=== PATIENT | female | born 1970 | race Caucasian/White ===

== ENCOUNTER 2016-11-30 14:46 | Emergency (ER) | payer OTHER ==
--- NOTE | 2016-11-30 15:25 | DIAGNOSTIC IMAGING REPORT ---
PROCEDURE: XR CHEST 1 VIEW INDICATION: CHEST PAIN, initial encounter TECHNIQUE: Portable AP view 03:07 p.m. COMPARISON: None. FINDINGS: Lungs are clear. Heart and mediastinum are normal. Thorax is normal. IMPRESSION: 1. Negative chest.
--- NOTE | 2016-11-30 17:36 | DIAGNOSTIC IMAGING REPORT ---
PROCEDURE: CTA THORAX WITH CONTRAST INDICATION: CHEST PAIN TECHNIQUE: 84 ml of Isovue 370 was injected intravenously and axial images were obtained of the chest with 3D sagittal and coronal MIP reconstructions. COMPARISON: None. FINDINGS: Normal opacification of the pulmonary arterial tree without filling defect. The central pulmonary arteries are normal caliber. Thoracic aorta is normal caliber. The great vessels demonstrate a normal variant branching pattern with aortic arch origin of the left vertebral artery. Heart size is normal. No pericardial effusion. Mild bilateral hilar adenopathy No mediastinal masses. The esophagus is normal in caliber without hiatal hernia. The thyroid gland is normal. The lungs are clear. The airway is patent and branches normally. No pleural effusions or pneumothorax. Osseous structures are intact. The images obtained of the upper abdomen are normal. IMPRESSION: 1. No pulmonary embolus. 2. Discussed with Dr. Felipe in the emergency room.
--- NOTE | 2016-11-30 18:07 | ED ORDER SUMMARY ---
..... Patient: REJI LU OrderSheet [facility] VisitID: [id number] [place] [address] 46y, F Registration Date/Time: 11/30/2016 ORDER SHEET Weight: 77.1 kg (stated) Allergies: morphine, Tramadol, Toradol GENERAL ORDERS: Chest 1V Urgent (15:00 11/30/2016 SStone R.N. per protocol) (15:07 MCook R.N.) Global Climate Change Researcher (Continuous) (15:11/30/2016 SStone R.N. per protocol) (15:01 SStone R.N.) Cardiac Panel Stat (15:11/30/2016 SStone R.N. per protocol) (15:10 MCook R.N.) Oxygen (2 L/min) (NC) (15:11/30/2016 SStone R.N. per protocol) (15:01 SStone R.N.) Pulse oximeter (15:11/30/2016 SStone R.N. per protocol) (15:01 SStone R.N.) EKG - ER Stat (15:11/30/2016 SStone R.N. per protocol) (15:01 SStone R.N.) D-Dimer Urgent (15:17 11/30/2016 Tuan LANGSTON) (Ack 15:26 LTapper) (15:26 MCook R.N.) Lipase Urgent (15:17 11/30/2016 Tuan LANGSTON) (Ack 15:26 LTapper) (15:26 MCook R.N.) CTA Thorax w Cont (No) (N/A) Urgent (16:17 11/30/2016 Tuan LANGSTON) (Ack 16:23 LTapper) (16:55 MCook R.N.) Troponin-I Urgent (18:08 11/30/2016 Tuan LANGSTON) (Ack 18:15 LTapper) (18:22 MCook R.N.) MEDICATION ORDERS: Ibuprofen PO 600 mg (NOW) (15:20 11/30/2016 Tuan LANGSTON) (15:26 MCook R.N.) GI Cocktail WHITE PO 50 mL (NOW) (17:37 11/30/2016 Tuan LANGSTON) (17:50 Cliff Renee) IV FLUIDS: IV Saline Lock (15:08 11/30/2016 Tuan LANGSTON) (15:10 Cliff Renee) ORDER SHEET NOTES: [Electronically signed by John Harris R.N. (19:09 11/30/2016)] [Electronically signed by Denver Felipe MD (20:54 12/01/2016)] [Electronically locked/signed by John Harris R.N. (19:09 11/30/2016)]
--- NOTE | 2016-11-30 18:07 | ED ORDER SUMMARY ---
..... Patient: REJI LU OrderSheet [facility] VisitID: [id number] [place] [address] 46y, F Registration Date/Time: 11/30/2016 ORDER SHEET Weight: 77.1 kg (stated) Allergies: morphine, Tramadol, Toradol GENERAL ORDERS: Chest 1V Urgent (15:00 11/30/2016 SStone R.N. per protocol) (15:07 MCook R.N.) Producer Assistant (Continuous) (15:11/30/2016 SStone R.N. per protocol) (15:01 SStone R.N.) Cardiac Panel Stat (15:11/30/2016 SStone R.N. per protocol) (15:10 MCook R.N.) Oxygen (2 L/min) (NC) (15:11/30/2016 SStone R.N. per protocol) (15:01 SStone R.N.) Pulse oximeter (15:11/30/2016 SStone R.N. per protocol) (15:01 SStone R.N.) EKG - ER Stat (15:11/30/2016 SStone R.N. per protocol) (15:01 SStone R.N.) D-Dimer Urgent (15:17 11/30/2016 Tuan LANGSTON) (Ack 15:26 LTapper) (15:26 MCook R.N.) Lipase Urgent (15:17 11/30/2016 Tuan LANGSTON) (Ack 15:26 LTapper) (15:26 MCook R.N.) CTA Thorax w Cont (No) (N/A) Urgent (16:17 11/30/2016 Tuan LANGSTON) (Ack 16:23 LTapper) (16:55 MCook R.N.) Troponin-I Urgent (18:08 11/30/2016 Tuan LANGSTON) (Ack 18:15 LTapper) (18:22 MCook R.N.) MEDICATION ORDERS: Ibuprofen PO 600 mg (NOW) (15:20 11/30/2016 Tuan LANGSTON) (15:26 MCook R.N.) GI Cocktail WHITE PO 50 mL (NOW) (17:37 11/30/2016 Tuan LANGSTON) (17:50 Cliff Renee) IV FLUIDS: IV Saline Lock (15:08 11/30/2016 Tuan LANGSTON) (15:10 Cliff Renee) ORDER SHEET NOTES: [Electronically signed by John Harris R.N. (19:09 11/30/2016)] [Electronically signed by Denver Felipe MD (20:54 12/01/2016)] [Electronically locked/signed by John Harris R.N. (19:09 11/30/2016)]
--- NOTE | 2016-11-30 18:07 | ED NURSING NOTES ---
Clinical Report - Nurses [facility] [address] [place] [address] 11/30/2016 14:48 Patient: REJI LU TRIAGE Triage time 14:50. Acuity: LEVEL 2. Chief Complaint: CHEST PAIN. --14:54 Alice Ramos R.N. 14:50 11/30/16. BP: 115/64. HR: 82. RR: 18. O2 saturation: 98%. Temp: 98.3 F. Pain level now: 03/26. --14:54 Alice Ramos R.N. Weight: 77.1 kg stated. Height/Length: 67 inches Per Patient. BMI: 26.6. --14:51 Alice Ramos R.N. Medications Humalog sliding scale. --14:57 Alice Ramos R.N. Lantus 22 units A.M, 24 P.M. --14:58 Alice Ramos R.N. Atorvastatin 40 mg qhs. --14:58 Alice Ramos R.N. Cyclobenzaprine 10 mg bid. --14:58 Alice Ramos R.N. Aprazolam 0.5 mg prn. --14:58 Alice Ramos R.N. Ibuprofen 800 mg BID. --14:58 Alice Ramos R.N. Gabapentin 500 mg bid. --14:58 Alice Ramos R.N. Klor-Con M10 Oral. --14:58 Alice Ramos R.N. Furosemide 20 mg daily. --14:58 Alice Ramos R.N. Vitamin D2 Oral. --14:59 Alice Ramos R.N. Nystatin bid. --14:59 Alice Ramos R.N. Allergies morphine. --14:51 Alice Ramos R.N. Tramadol. --14:51 Alice Ramos R.N. Toradol. --15:15 John Harris R.N. History Arrived by EMS, and from home (m48). Onset. (6 hours ago). She has had mild difficulty breathing. No sweating episodes, nausea or vomiting. Treatment FERRYBOAT DECKHAND: Took aspirin and NTG x1 sublingually. SURGERY HX: ( trigger thumb release). SOCIAL HX: Heavy tobacco smoker (cigarette)- less than 1 pack per day. History of heavy drug use: marijuana. Recently used drugs yesterday. No alcohol use. SELF HARM ASSESSMENT: A self harm assessment was performed. The patient answered "no" to the question "Do you have thoughts of harming or killing yourself?". --14:54 Alice Ramos R.N. PROBLEMS: Neuropathy. Diabetes. Copd. --14:51 Alice Ramos R.N. Interventions ID band on patient. --14:54 Alice Ramos R.N. PHYSICAL ASSESSMENT GENERAL / NEURO / PSYCH: Alert. Oriented X 4. Appears in no acute distress. RESPIRATORY: Respirations not labored. Breath sounds within normal limits. CVS: Heart sounds within normal limits. Pulses within normal limits. Capillary refill less than 2 seconds. GI / : Abdomen soft. EXTREMITIES: No lower extremity edema. SKIN: Skin is warm and dry. Skin is non-tender. --14:55 Alice Ramos R.N. NURSING PROGRESS NOTES 14:56 11/30/2016 Site #1 started prior to arrival by EMS via IV in the left hand with an 20g angiocath. --14:56 Alice Ramos R.N. Monitoring of patient in place. EKG time: (1450). EKG was performed by a tech and shown to the ED physician. Finger stick glucose: 328. Patient gowned. Reassurance given. Patient identifiers checked. Call light placed in reach. Side rails up x 2. --14:57 Alice Ramos R.N. 14:55 11/30/16. BP: 117/66. HR: 87. --14:57 Alice Ramos R.N. ( called lab to come draw.). --15:01 Alice Ramos R.N. Patient ID band checked for patient name and birthdate: patient confirmed. Blood samples drawn from the right antecubital space with Vacutainer by tech per protocol ; labeled in presence of the patient and sent to lab: rainbow set: cardiac enzymes (1st set). --15:09 John Harris R.N. 15:16 11/30/16. BP: 107/61. HR: 83. O2 saturation: 97% on room air. Pain level now: 03/26. --15:17 John Harris R.N. ( Pt sitting up on stretcher, MD in to see Pt, VSS. Pt reports that her pain remains the same.). --15:17 John Harris R.N. EKG time: (14:51). EKG was performed by a tech and shown to the ED physician. --15:22 Ambreen Vazquez 15:26 11/30/2016 Ibuprofen PO Tablets 600 mg given. Allergies verified and confirmed 5 rights. --15:26 John Harris R.N. ( Pt resting in bed, VSS, 2nd IVIP for CTA. Pt tolerated poorly, tearful.). --16:41 John Harris R.N. Patient transported to CT by stretcher with tech. (16:50 Nov 30 2016). --16:55 John Harris R.N. 16:41 11/30/2016 Site #2 started via IV in the left antecubital space; one attempt. Saline lock flushed with 10 mL saline (For CT with contrast purposes). --16:56 John Harris R.N. ( Pt's IV intolerant to CT contrast pressure. New IV placed in CT room. Pt tolerated fair, still tearful. CT in progress.). --17:13 John Harris R.N. 17:13 11/30/2016 Site #2 removed. Bandage applied (Pt stated the IV was hurting after CT attempted to use it for CT-A and the back pressure blew off the contrast tubing.). --17:14 John Harris R.N. 17:14 11/30/2016 Site #3 started via IV in the right antecubital space with an 18g angiocath, with aseptic technique and good blood return; one attempt. Saline lock flushed with 10 mL saline. --17:14 John Harris R.N. Patient returned from CT by stretcher with tech. (17:29 Nov 30 2016). --17:29 John Harris R.N. 17:28 11/30/16. BP: 116/73. HR: 77. RR: 18. O2 saturation: 98% on room air. Pain level now: 03/26. --17:29 John Harris R.N. 17:49 11/30/2016 GI COCKTAIL WHITE (Simethicone) PO Oral Suspension 50 mL given. Allergies verified and confirmed 5 rights. --17:50 John Harris R.N. ( Pt reports her pain is unchanged. Visitor at bedside, VSS. GI cocktail given.). --17:50 John Harris R.N. 17:50 11/30/16. BP: 111/69. HR: 89. RR: 16. O2 saturation: 96% on room air. Pain level now: 03/26. --17:51 John Harris R.N. Checked patient name and birthdate. Blood samples drawn from the right antecubital space by nurse. Initial blood discarded. Line flushed with 10 mL normal saline post blood draw. Reassessment after medication administered. She has had no adverse reaction. Overall patient status is the same- she states feels the same. --18:21 John Harris R.N. 17:58 11/30/2016 Ibuprofen PO Response: no adverse reaction symptoms are the same. The patient feels the same. --18:23 John Harris R.N. 18:18 11/30/2016 GI COCKTAIL WHITE PO Response: no adverse reaction symptoms are the same. The patient feels the same. --18:23 John Harris R.N. 19:06 11/30/2016 Site #1 removed upon discharge. Bandage applied. --19:07 John Harris R.N. 19:07 11/30/2016 Site #3 removed upon discharge. Bandage applied. --19:07 John Harris R.N. DISPOSITION / DISCHARGE 18:20 11/30/16. BP: 125/70. HR: 75. RR: 16. O2 saturation: 97% on room air. Temp: 97.8 F. Pain level now: 03/26. --18:21 John Harris R.N. Condition at departure: stable. The goals identified in the patient's plan of care were met. No learning barriers present. Discharge instructions provided and reviewed with the patient and family. Reviewed medication(s) side effects, precautions, dosing and course information. Prescription(s) given to the patient. Reviewed referral to a primary care physician. Patient verbalized understanding. Written instructions provided in Norwegian. The patient was discharged by the physician. She was discharged home and accompanied by family. She left the Emergency Department ambulatory and via private vehicle. Family member driving. --19:04 John Harris R.N. Departure time: 19:08 Nov 30 2016. --19:08 John Harris R.N. Locked/Released at 11/30/2016 19:09 by John Harris R.N.
--- NOTE | 2016-11-30 18:07 | ED CLINICAL REPORT ---
Clinical Report - Physicians/Mid Levels [facility] [address] [place] [address] 11/30/2016 14:48 Patient: REJI LU Time Seen: 15:03 Nov 30 2016. Arrived- By ambulance. Historian- patient and EMS personnel. CPT: ER phys charges level 4 plus (#022795). EKG interpretation (#[id number]). HISTORY OF PRESENT ILLNESS Chief Complaint: CHEST PAIN. It is described as sharp and "pain" and it is described as located in the central chest area. At its maximum, severity described as moderate. When seen in the E.D., severity described as moderate. Modifying factors- worsened by movement and deep breaths. Relieved by nitroglycerin (one, given by paramedics). Not relieved by anything. This started today about 0900 AM and is still present. It has been constant. Onset during light activity; woke up with it this morning. No nausea, vomiting or diaphoresis. She has had difficulty breathing. Similar symptoms previously: None. Recent medical care: Not recently seen/assessed. Prehospital Treatment: ASA 325 mg PO given. NITROGLYCERIN Pain relieved for about 10 minutes after NTG. spray X1 SL given by EMS. REVIEW OF SYSTEMS No fever, chills, cough, pedal edema or calf pain. No headache, sore throat, blurred vision, abdominal pain or black stools. No difficulty with urination, skin rash, enlarged lymph nodes or joint pain. All systems otherwise negative, except as recorded above. PAST HISTORY Diabetes mellitus. Hyperlipidemia. Neuropathy. Diabetes. Copd. : ( trigger thumb release). Gastroesophageal reflux. Surgeries: No prior cardiac procedures. Medications: Nystatin bid. Vitamin D2 Oral. Furosemide 20 mg daily. Klor-Con M10 Oral. Gabapentin 500 mg bid. Ibuprofen 800 mg BID. Aprazolam 0.5 mg prn. Cyclobenzaprine 10 mg bid. Atorvastatin 40 mg qhs. Lantus 22 units A.M, 24 P.M. Humalog sliding scale. Allergies: morphine. Toradol. Tramadol. SOCIAL HISTORY Heavy tobacco smoker (cigarette)- 1 pack per day. FAMILY HISTORY History of heart disease with premature onset in first-degree relative (mother). ADDITIONAL NOTES The nursing notes have been reviewed. PHYSICAL EXAM Vital Signs: 11/30/2016 14:50 BP: 115/64. HR: 82. RR: 18. O2 saturation: 98%. Temp: 98.3 F. Pain level now: 710. Appearance: Alert. Anxious. Patient in mild distress. Eyes: Eyes normal inspection. ENT: Ears normal. Nose normal. Pharynx normal. Neck: Normal inspection. Neck supple. CVS: Normal heart rate and rhythm. Heart sounds normal. Pulses normal. No cardiac murmur. Respiratory: No respiratory distress. Chest pain reproducible with palpation of the costal cartilage and anterior chest wall, with movement of the trunk and left arm and with deep breathing (point tender over the left 6th rib at the sternum.). Breath sounds normal. No rales or wheezes. Abdomen: Soft and nontender. Bowel sounds normal. Back: Normal external inspection. Skin: Skin warm. Normal skin color. No rash. Extremities: Extremities exhibit normal ROM. No lower extremity edema. Neuro: Oriented X 3. No motor deficit. No sensory deficit. LABS, X-RAYS, AND EKG EKG: Normal sinus rhythm. Normal P waves. Poor R wave progression. Normal axis. Non-specific ST segment / T wave abnormalities. The study has been interpreted contemporaneously. The study has been independently viewed by me. The EKG appears to be a good tracing. Chest X-ray: Normal Chest X-Ray. Chest CT: No acute disease. Laboratory Tests: CBC w Diff: (SONIDO: 11/30/2016 15:09) ( MsgRcvd 11/30/2016 15:18) Final results Test Result Flag Units (Reference) WHITE BLOOD COUNT 6.6 K/uL (4.5-11.5) RED BLOOD COUNT 4.37 M/uL (4.00-5.20) HEMOGLOBIN 11.4 L gm/dL (12.0-16.0) HEMATOCRIT 35.2 L % (36.0-46.0) MEAN CELL VOLUME 81 fL (80-100) MEAN CORPUSCULAR HGB 26 pg (26-34) MEAN CORPUSCULAR HGB CONC 32 g/dL (31-37) RED CELL DISTRIBUTION WIDTH 17.2 H % (11.6-14.8) PLATELET COUNT 442 H K/uL (150-400) NEUTROPHIL % 47.6 L % (50-75) LYMPH % 39.9 % (25-40) MONO % 10.1 % (3-14) EOSINOPHIL % 1.6 % (0-4) BASOPHIL % 0.8 % (0-2) [id number]: (SONIDO: 11/30/2016 15:00) ( [facility] [place] 15:32) Final results Test Result Flag Units (Reference) D-DIMER QUANTITATIVE 0.61 H ug/mLFEU (0.27-0.52) The primary value of this quantitative assay relates toits negative predictive value (i.e. exclusion) of pulmonaryembolism/deep vein thrombosis/DIC.Elevated levels of d-dimer may also occur with:, age, cancer, inflammation, liver disease,post-op, infection, hematoma, coronary disease, peripheralarteriopathy, bleeding disorders and thrombolytic treatment.Results should be correlated with other clinical andradiological data.Testing Methodology: Latex Immunoassay CHEM 13 PANEL: (SONIDO: 11/30/2016 15:09) ( [facility] [place] 11/30/2016 15:36) IP Test Result Flag Units (Reference) GLUCOSE 342 H mg/dL (70-110) BUN 10 mg/dL (7-18) CREATININE 0.7 mg/dL (0.6-1.3) Estimated GFR >60 mL/min Estimated GFR- >60 mL/min Note: Persistent reduction over 3 months in eGFR<60 mL/min/1.73 m2 defines CKD. Patients with eGFR values>=60 mL/min/1.73 m2 may also have CKD if evidence ofpersistent proteinuria. Additional information may be foundat www.kidney.org. SODIUM 137 mmol/L (136-145) POTASSIUM 4.0 mmol/L (3.5-5.1) CHLORIDE 103 mmol/L (98-107) CARBON DIOXIDE 25 mmol/L (21-32) CALCIUM 8.3 L mg/dL (8.5-10.1) TOTAL PROTEIN 6.5 g/dL (6.4-8.2) ALBUMIN 3.1 L g/dL (3.3-5.0) BILIRUBIN, TOTAL 0.2 mg/dL (0.0-1.0) ALKALINE PHOSPHATASE 64 U/L (46-116) AST (SGOT) 15 U/L (15-37) ALT (SGPT) 20 U/L (12-78) MAGNESIUM 1.7 L mg/dL (1.8-2.4) CPK 108 U/L (24-260) TROPONIN I <0.05 ng/mL (0.00-1.5) TROPONIN REFERENCE RANGE:<0.1 NEGATIVE0.1-1.5 INDETERMINANT>1.5 POSITIVE . PROGRESS AND PROCEDURES Course of Care: heplock ASA 325 mg in the field patient received nitroglycerin 1 in the field. This eliminated the pain for 10 minutes and then it came back. the patient is point tender over the left chest wall. Toradol was offered but the patient is allergic to this and she develops rash. Patient has taken ibuprofen and Aleve in the past without problems. Ibuprofen 600 mg by mouth. Patient/family counseled. Disposition: Discharged. Condition: stable. CLINICAL IMPRESSION Costochondritis .12 lead EKG performed. INSTRUCTIONS Your Current Medications: CONTINUE TAKING THE FOLLOWING MEDICATIONS: Aprazolam 0.5 mg prn*. Atorvastatin 40 mg qhs*. Cyclobenzaprine 10 mg bid*. Furosemide 20 mg daily*. Gabapentin 500 mg bid*. Humalog sliding scale*. Ibuprofen 800 mg BID*. Klor-Con M10 Oral. Lantus 22 units A.M, 24 P.M*. Nystatin bid*. Vitamin D2 Oral. Prescription Medications: Hydrocodone/APAP 5mg/325mg: take 1 to 2 orally every 6 hours as needed for pain. Dispense fifteen (15). No refills. Understanding of the discharge instructions verbalized by patient. (Electronically signed by Denver Felipe MD 12/01/2016 20:54)
--- NOTE | 2016-12-01 20:54 | ED MED RECONCILIATION SUMMARY ---
Patient: REJI LU Medication Reconciliation Report [facility] VisitID: [id number] [address] [place] [address] 46y, F Registration Date/Time: 11/30/2016 Weight: 77.1 kg Height/Length: 67 in. BMI: 26.6 ALLERGIES: morphine, Toradol, Tramadol The patient's Home Medications are listed below: CONTINUE TAKING THE FOLLOWING MEDICATIONS: Aprazolam 0.5 mg prn Atorvastatin 40 mg qhs Cyclobenzaprine 10 mg bid Furosemide 20 mg daily Gabapentin 500 mg bid Humalog sliding scale Ibuprofen 800 mg BID Klor-Con M10 Oral Lantus 22 units A.M, 24 P.M Nystatin bid Vitamin D2 Oral The source(s) of the original Home Medication information: Not obtained. The following Medications were given to the patient in the Emergency Department: Ibuprofen [PO] PO 600 mg, administered: 11/30/2016 3:26:00 PM GI COCKTAIL WHITE [PO] PO 50 mL, administered: 11/30/2016 5:49:00 PM The following Medications were prescribed to the patient: Hydrocodone/APAP 5mg/325mg: take 1 to 2 orally every 6 hours as needed for pain. Dispense fifteen (15). No refills. -- Denver Felipe MD
--- NOTE | 2016-12-01 20:54 | ED MED RECONCILIATION SUMMARY ---
Patient: REJI LU Medication Reconciliation Report [facility] VisitID: [id number] [address] [place] [address] 46y, F Registration Date/Time: 11/30/2016 Weight: 77.1 kg Height/Length: 67 in. BMI: 26.6 ALLERGIES: morphine, Toradol, Tramadol The patient's Home Medications are listed below: CONTINUE TAKING THE FOLLOWING MEDICATIONS: Aprazolam 0.5 mg prn Atorvastatin 40 mg qhs Cyclobenzaprine 10 mg bid Furosemide 20 mg daily Gabapentin 500 mg bid Humalog sliding scale Ibuprofen 800 mg BID Klor-Con M10 Oral Lantus 22 units A.M, 24 P.M Nystatin bid Vitamin D2 Oral The source(s) of the original Home Medication information: Not obtained. The following Medications were given to the patient in the Emergency Department: Ibuprofen [PO] PO 600 mg, administered: 11/30/2016 3:26:00 PM GI COCKTAIL WHITE [PO] PO 50 mL, administered: 11/30/2016 5:49:00 PM The following Medications were prescribed to the patient: Hydrocodone/APAP 5mg/325mg: take 1 to 2 orally every 6 hours as needed for pain. Dispense fifteen (15). No refills. -- Denver Felipe MD
--- NOTE | 2016-12-01 20:54 | ED DISCHARGE INSTRUCTIONS ---
Patient: REJI LU General Instructions [facility] VisitID: [id number] [address] [place] [address] 46y, F Registration Date/Time: 11/30/2016 Costochondritis .12 lead EKG performed. INSTRUCTIONS Your Current Medications: CONTINUE TAKING THE FOLLOWING MEDICATIONS: Aprazolam 0.5 mg prn*. Atorvastatin 40 mg qhs*. Cyclobenzaprine 10 mg bid*. Furosemide 20 mg daily*. Gabapentin 500 mg bid*. Humalog sliding scale*. Ibuprofen 800 mg BID*. Klor-Con M10 Oral. Lantus 22 units A.M, 24 P.M*. Nystatin bid*. Vitamin D2 Oral. Prescription Medications: Hydrocodone/APAP 5mg/325mg: take 1 to 2 orally every 6 hours as needed for pain. Dispense fifteen (15). No refills. Understanding of the discharge instructions verbalized by patient. ADDITIONAL INFORMATION Chest Wall Pain: Costochondritis The chest pain that you have had today is caused by Costochondritis. This condition is due to an inflammation of the cartilage joining the ribs to the breastbone. It is not caused by heart or lung problems. Although the exact cause for costochondritis is not known, it often occurs during times of emotional stress. It can be painful, but it is not dangerous. It usually disappears within one to two weeks, but may recur. Rarely, a more serious condition may cause symptoms similar to costochondritis; therefore, watch for the warning signs listed below. Home Care: If you feel that emotional stress is a cause of your condition, try to identify sources of that stress. It may not be obvious! Learn ways to deal with the stress in your life such as regular exercise, muscle relaxation, meditation, or simply taking time out for yourself. For more information about this, consult your doctor or go to a local bookstore and review books and tapes available on the subject of stress reduction. You may use acetaminophen (Tylenol) or ibuprofen (Motrin, Advil) to control pain, unless another pain medicine was prescribed. [ NOTE: If you have liver disease or ever had a stomach ulcer, talk with your doctor before using these medicines.] The use of heat (hot wet compress or heating pad) with or without local analgesic creams (Deep Heat Rub, Oumar Bowling) will be helpful to reduce pain. Follow Up with your doctor as directed or sooner if you do not start to improve within the next two days. Get Prompt Medical Attention if any of the following occur: A change in the type of pain: if it feels different, becomes more severe, lasts longer, or spreads into your shoulder, arm, neck, jaw or back Shortness of breath or increased pain with breathing Weakness, dizziness, or fainting Cough with dark colored sputum (phlegm) or blood Abdominal pain Dark red or black stools Fever of 100.4F (38C) or higher, or as directed by your healthcare provider You have been given the following additional information: Chest Wall Pain, Costochondritis (Electronically signed by Denver Felipe MD 12/01/2016 20:54)
--- NOTE | 2016-12-01 20:54 | ED MAR SUMMARY ---
..... Medication Administration Record [facility] [address] [place] [address] Patient: REJI LU Visit ID: [id number] 46y, F Weight: 77.1 kg Height/Length: 67 in BMI: 26.6 ALLERGIES: Tramadol, morphine, Toradol Given 15:26 11/30/2016 John Harris R.N. Medication Administered: IBUPROFEN [PO], Dose: 600 mg Tablets PO. Medication Ordered: Ibuprofen PO 600 mg (NOW). Given 17:49 11/30/2016 John Harris RKbN. Medication Administered: GI COCKTAIL WHITE [PO] (SIMETHICONE), Dose: 50 mL Oral Suspension PO. Medication Ordered: GI Cocktail WHITE PO 50 mL (NOW).
--- NOTE | 2016-12-01 20:54 | ED MAR SUMMARY ---
..... Medication Administration Record [facility] [address] [place] [address] Patient: REJI LU Visit ID: [id number] 46y, F Weight: 77.1 kg Height/Length: 67 in BMI: 26.6 ALLERGIES: Tramadol, morphine, Toradol Given 15:26 11/30/2016 John Harris R.N. Medication Administered: IBUPROFEN [PO], Dose: 600 mg Tablets PO. Medication Ordered: Ibuprofen PO 600 mg (NOW). Given 17:49 11/30/2016 John Harris RKbN. Medication Administered: GI COCKTAIL WHITE [PO] (SIMETHICONE), Dose: 50 mL Oral Suspension PO. Medication Ordered: GI Cocktail WHITE PO 50 mL (NOW).
== END 2016-11-30 19:09 | disposition home or self-care (01) ==
LOC: ED SRH 14:46
DX: M94.0 Chondrocostal junction syndrome [Tietze] (principal); F17.210 Nicotine dependence, cigarettes, uncomplicated; E11.9 Type 2 diabetes mellitus without complications; Z79.4 Long term (current) use of insulin; Z79.899 Other long term (current) drug therapy; Z88.8 Allergy status to other drugs, medicaments and biological substances; Z88.5 Allergy status to narcotic agent
CPT/HCPCS: 90100; 90616; 91556; 92235; 92610; 92720; 95059

== ENCOUNTER 2017-02-11 21:50 | Emergency (ER) | payer OTHER ==
--- NOTE | 2017-02-11 23:13 | ED ORDER SUMMARY ---
..... Patient: REJI LU OrderSheet [facility] VisitID: [id number] [place] [address] 47y, F Registration Date/Time: 02/11/2017 ORDER SHEET Weight: 74.8 kg (stated) Allergies: morphine, Toradol, Tramadol GENERAL ORDERS: Ribs Unilat w PA Chest Left Urgent (22:15 02/11/2017 Kirit Parkinson) (Ack 22:17 [facility] ER Admission Specialist) (22:48 MWinterer R.N.) MEDICATION ORDERS: Dilaudid IM 2 mg (HIGH ALERT MEDICATION, NOW) (22:14 02/11/2017 Kirit Parkinson) (Ack 22:15 MWinterer R.N.) (22:19 MWinterer R.N.) IV FLUIDS: ORDER SHEET NOTES: [Electronically signed by Ralph Sheppard R.N. (23:50 02/11/2017)] [Electronically signed by Renato Delgado Dr. (08:25 02/13/2017)] [Electronically locked/signed by Ralph Sheppard R.N. (23:50 02/11/2017)]
--- NOTE | 2017-02-11 23:13 | ED NURSING NOTES ---
Clinical Report - Nurses [facility] [address] [place] [address] 02/11/2017 21:51 Patient: REJI LU TRIAGE Acuity: LEVEL 3. Chief Complaint: BACK PAIN. Alert. No acute distress. --22:03 Danya Duenas R.N. 21:57 02/11/17. BP: 147/95. HR: 98. RR: 22. O2 saturation: 97%. Temp: 98.1 F (oral). Pain level now: 06/26. --22:03 Danya Duenas R.N. Weight: 74.8 kg stated. Height/Length: 67 inches Per Patient. BMI: 25.9. --22:00 Danya Duenas R.N. Medications Aprazolam 0.5 mg prn. Atorvastatin 40 mg qhs. Cyclobenzaprine 10 mg bid. Gabapentin 500 mg bid. Humalog sliding scale. Ibuprofen 800 mg BID. Klor-Con M10 Oral. --22:02 Danya Duenas R.N. Lantus 22 units A.M, 24 P.M. --22:02 Danya Duenas R.N. Lantus Subcutaneous. --22:02 Danya Duenas R.N. Furosemide Oral. --22:02 Danya Duenas R.N. Glidess FE. --22:02 Danya Duenas R.N. Medication/allergy information source: the patient. --22:03 Danya Duenas R.N. Allergies morphine. Toradol. Tramadol. --22:02 Danya Duenas R.N. History Arrived by private vehicle. Historian: patient. Accompanied by son and brother. Primary physician (Rolly). This started just prior to arrival. ( Pt reports she has had a cough for two weeks and tonight coughed and felt a "pop" in the left lower side of her back.). 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 PAST MEDICAL HX: The patient is post-menopausal. FALL RISK ASSESSMENT: Fall risk assessment completed. No fall risk identified. NUTRITIONAL RISK ASSESSMENT: The nutritional risk assessment revealed no deficiencies. FUNCTIONAL ASSESSMENT: Functional assessment: no impairments noted. LEARNING NEEDS ASSESSMENT: The learning needs assessment revealed no barriers. SKIN INTEGRITY ASSESSMENT: Skin integrity risk assessment completed. No skin integrity risk identified. --22: Danya Duenas R.N. PROBLEMS: Costochondritis. Diabetes Mellitus. Hyperlipidemia. Gastroesophageal Reflux. Neuropathy. Diabetes. Copd. --22:03 Danya Duenas R.N. ADDITIONAL SURGERIES: . Dilatation & Curettage. Knee Surgery. --22:03 Danya Duenas R.N. Assessment GENERAL / NEURO / PSYCH: Alert. Oriented X 4. Appears in no acute distress. Appears in pain. Patient appears calm and cooperative. RESPIRATORY: Respirations not labored. CVS: Capillary refill less than 2 seconds. GI / : Abdomen soft and nontender. SKIN: Mucous membranes are pink. Skin is warm and dry. --22: Danya Duenas R.N. Interventions ID band on patient. To treatment room. --22: Danya Duenas R.N. PHYSICAL ASSESSMENT 22:02/11/17. To room via wheelchair. GENERAL / NEURO / PSYCH: Alert. Oriented X 4. Appears in no acute distress. Appears in pain. HEENT: Pupils equal, round and reactive to light. No facial asymmetry noted. RESPIRATORY: Respirations not labored. CVS: Capillary refill less than 2 seconds. Pulses within normal limits. GI / : Abdomen soft and nontender. SKIN: Skin is warm and dry. Normal skin turgor. --22: Danya Duenas R.N. NURSING PROGRESS NOTES 22:02/11/17. Patient gowned. Reassurance given. Two patient identifiers checked. Checked patient name and birthdate. Call light placed in reach. Side rails up x 1. Bed placed in lowest position. Brakes of bed on. Patient ready for evaluation- chart flagged and ED physician and PA notified. --22: Danya Duenas R.N. 22:19 02/11/2017 Dilaudid (HYDROmorphone HCl PF) IM 2 mg given. Given in the right deltoid. Allergies verified, confirmed 5 rights and sedative warning given to the patient. --22:19 Danya Duenas R.N. 23:45. The patient is calm and resting quietly. RESPIRATORY: No respiratory distress. SKIN: Skin is warm and dry. Skin color within normal limits. --23:50 Ralph Sheppard R.N. DISPOSITION / DISCHARGE Departure time: 23:48. Condition at departure: stable. No learning barriers present. Discharge instructions provided and reviewed with the patient. Reviewed medication(s) side effects, precautions, dosing and course information. Prescription(s) given to the patient. Patient verbalized understanding. Written instructions provided in Chinese. The patient was discharged home and accompanied by family. She left the Emergency Department ambulatory and via private vehicle. Family member driving. FALL RISK ASSESSMENT: Fall risk assessment completed. No fall risk identified. --23:49 Ralph Sheppard R.N. 23:40 02/11/17. BP: 111/65. HR: 78. RR: 17. O2 saturation: 96%. Pain level now: 02/24. --23:49 Ralph Sheppard R.N. Locked/Released at 02/11/2017 23:50 by Ralph Sheppard R.N.
--- NOTE | 2017-02-11 23:13 | ED ORDER SUMMARY ---
..... 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 (23:50 02/11/2017)] [Electronically signed by Renato Delgado Dr. (08:25 02/13/2017)] [Electronically locked/signed by Ralph Sheppard R.N. (23:50 02/11/2017)]
--- NOTE | 2017-02-11 23:13 | ED CLINICAL REPORT ---
Clinical Report - Physicians/Mid Levels [facility] [address] [place] [address] 02/11/2017 21:51 Patient: REJI LU Time Seen: 2210. Arrived- By private vehicle. Historian- patient. HISTORY OF PRESENT ILLNESS Chief Complaint: Injury to BACK. Location of injuries- (left back ribs). The injury occurred today. (coughed and felt a pop in the back). Occurred at home. The patient complains of severe pain. No blow to the head, neck pain, loss of consciousness or seizure. Not dazed. REVIEW OF SYSTEMS No difficulty breathing or laceration. All systems otherwise negative, except as recorded above. PAST HISTORY See nurses notes. Tetanus immunization status is up-to-date. Medications: Glidess FE. Furosemide Oral. Lantus Subcutaneous. Lantus 22 units A.M, 24 P.M. Aprazolam 0.5 mg prn. Atorvastatin 40 mg qhs. Cyclobenzaprine 10 mg bid. Gabapentin 500 mg bid. Humalog sliding scale. Ibuprofen 800 mg BID. Klor-Con M10 Oral. Allergies: morphine. Toradol. Tramadol. ADDITIONAL NOTES The nursing notes have been reviewed. PHYSICAL EXAM Vital Signs: 02/11/2017 21:57 BP: 147/95. HR: 98. RR: 22. O2 saturation: 97%. Temp: 98.1 F. Pain level now: 10/10. Oxygen saturation normal. Appearance: Alert. Oriented X3. Patient in mild distress. Head: Head non-tender. No swelling of head. Eyes: Pupils equal, round and reactive to light. Pupillary exam: Right pupil 3mm, round and reactive to light directly and consensually and with accommodation. Left pupil: 3mm, round and reactive to light directly and consensually and with accommodation. EOM intact. ENT: No dental injury. No hemotympanum. Pharynx normal. Neck: No decreased ROM or muscle spasm in the neck. No pain with movement of head/neck. Painless ROM. Non-tender. No vertebral tenderness. CVS: Heart sounds normal. Pulses normal. Respiratory: Breath sounds normal. No rales, wheezes, rhonchi or crepitus. (left posterior chest wall tenderness). Abdomen: No visible injury. Soft and nontender. Bowel sounds normal. No mass. Back: No tenderness. Muscle spasm (left posterior midback). ROM normal. No tenderness or vertebral point tenderness. Skin: Skin intact. Skin warm and dry. Normal skin color. Normal skin turgor. Extremities: Normal inspection. Pelvis stable. Extremities atraumatic. No lower extremity edema. LABS, X-RAYS, AND EKG Sternum / Ribs X-rays: (PROCEDURE: XR RIBS UNILAT W/PA CHEST-LT INDICATION: COUGHING AND FELT/HEARD A POP TECHNIQUE: Three views of the left ribs with single PA view chest. COMPARISON: Chest x-ray 11/30/2016 FINDINGS: LEFT RIBS: Minimally displaced left lateral tenth rib fracture. No suspicious rib lesions. CHEST: Normal cardiomediastinal contour. Clear lungs without pleural effusion, pneumothorax, or contusion. The other visible osseous structures are intact. IMPRESSION: 1. Minimally displaced acute left lateral tenth rib fracture. 2. Normal chest without radiographic evidence of trauma.). Views: left ribs. The X-rays were independently viewed by me and interpreted by the radiologist. The X-rays were discussed with the radiologist (via pacs). PROGRESS AND PROCEDURES Course of Care: the patient is a pleasant 47-year-old female presenting for evaluation of left-sidedposterior rib pain. On examination, patient does have tenderness there. No signs of pneumothorax on examination. Patient is resting in bed however is in a mild amount of distress. Pain medication has been ordered. As well as radiographs of the chest and left ribs. Patient is agreeable to the treatment plan. Workup was significant for a acute fracture of theleft 10th rib. No pneumothorax noted. Pain has improved while here in the emergency department. Head discussion with the patient in regards to management of rib fractures. The patient increased risk of pneumonia and ways to reduce these risks. Furthermore discussed with the patient her workup here in the emergency department including diagnosis, home care, follow-up, and return precautions. All questions have been answered. The patient expressed understanding of these instructions and was agreeable to them. Disposition: Discharged. Condition: good. CLINICAL IMPRESSION 02/11/2017 21:57 BP: 147/95. HR: 98. RR: 22. O2 saturation: 97%. Temp: 98.1 F. Pain level now: 06/26. Hypertensive. Oxygen saturation normal. Single left rib fracture (10th). Essential hypertension. INSTRUCTIONS Warnings: GENERAL WARNINGS: Return or contact your physician immediately if your condition worsens or changes unexpectedly, if not improving as expected, or if other problems arise. SPECIFICALLY, return if you develop weakness, numbness, tingling, pain or incontinence. worsening pain, fever, or difficulty breathing. Your Current Medications: CONTINUE TAKING THE FOLLOWING MEDICATIONS: Aprazolam 0.5 mg prn*. Atorvastatin 40 mg qhs*. Cyclobenzaprine 10 mg bid*. Furosemide Oral. Gabapentin 500 mg bid*. Glidess FE*. Humalog sliding scale*. Ibuprofen 800 mg BID*. Klor-Con M10 Oral. Lantus 22 units A.M, 24 P.M*. Lantus Subcutaneous. Prescription Medications: Percocet 5 mg/325 mg: take 1-2 tablets orally every 6 hours as needed for pain. Dispense twenty (20). No refill. Substitution is permissible. Phenergan w/ Codeine 10mg / 6.25mg per 5 mL: take 1-2 teaspoons every 6 hours as needed for pain or cough. Dispense sixty (60) mL. No refill. Substitution is permissible. Follow-up: Return to the emergency department as needed. Follow up with your doctor in three days. Reason for referral: recheck today's concerns. Summary of care provided to patient and family via paper. Screening today revealed the patient's blood pressure to be in the normal range. The patient should follow up with a primary care provider for blood pressure management. Understanding of the discharge instructions verbalized by family. (Electronically signed by Renato Delgado Dr. 02/13/2017 8:25)
--- NOTE | 2017-02-11 23:13 | ED NURSING NOTES ---
Clinical Report - Nurses [facility] [address] [place] [address] 02/11/2017 21:51 Patient: REJI LU TRIAGE Acuity: LEVEL 3. Chief Complaint: BACK PAIN. Alert. No acute distress. --22:03 Danya Duenas R.N. 21:57 02/11/17. BP: 147/95. HR: 98. RR: 22. O2 saturation: 97%. Temp: 98.1 F (oral). Pain level now: 06/26. --22:03 Danya Duenas R.N. Weight: 74.8 kg stated. Height/Length: 67 inches Per Patient. BMI: 25.9. --22:00 Danya Duenas R.N. Medications Aprazolam 0.5 mg prn. Atorvastatin 40 mg qhs. Cyclobenzaprine 10 mg bid. Gabapentin 500 mg bid. Humalog sliding scale. Ibuprofen 800 mg BID. Klor-Con M10 Oral. --22:02 Danya Duenas R.N. Lantus 22 units A.M, 24 P.M. --22:02 Danya Duenas R.N. Lantus Subcutaneous. --22:02 Danya Duenas R.N. Furosemide Oral. --22:02 Danya Duenas R.N. Glidess FE. --22:02 Danya Duenas R.N. Medication/allergy information source: the patient. --22:03 Danya Duenas R.N. Allergies morphine. Toradol. Tramadol. --22:02 Danya Duenas R.N. History Arrived by private vehicle. Historian: patient. Accompanied by son and brother. Primary physician (Rolly). This started just prior to arrival. ( Pt reports she has had a cough for two weeks and tonight coughed and felt a "pop" in the left lower side of her back.). 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 PAST MEDICAL HX: The patient is post-menopausal. FALL RISK ASSESSMENT: Fall risk assessment completed. No fall risk identified. NUTRITIONAL RISK ASSESSMENT: The nutritional risk assessment revealed no deficiencies. FUNCTIONAL ASSESSMENT: Functional assessment: no impairments noted. LEARNING NEEDS ASSESSMENT: The learning needs assessment revealed no barriers. SKIN INTEGRITY ASSESSMENT: Skin integrity risk assessment completed. No skin integrity risk identified. --22: Danya Duenas R.N. PROBLEMS: Costochondritis. Diabetes Mellitus. Hyperlipidemia. Gastroesophageal Reflux. Neuropathy. Diabetes. Copd. --22:03 Danya Duenas R.N. ADDITIONAL SURGERIES: . Dilatation & Curettage. Knee Surgery. --22:03 Danya Duenas R.N. Assessment GENERAL / NEURO / PSYCH: Alert. Oriented X 4. Appears in no acute distress. Appears in pain. Patient appears calm and cooperative. RESPIRATORY: Respirations not labored. CVS: Capillary refill less than 2 seconds. GI / : Abdomen soft and nontender. SKIN: Mucous membranes are pink. Skin is warm and dry. --22: Danya Duenas R.N. Interventions ID band on patient. To treatment room. --22: Danya Duenas R.N. PHYSICAL ASSESSMENT 22:02/11/17. To room via wheelchair. GENERAL / NEURO / PSYCH: Alert. Oriented X 4. Appears in no acute distress. Appears in pain. HEENT: Pupils equal, round and reactive to light. No facial asymmetry noted. RESPIRATORY: Respirations not labored. CVS: Capillary refill less than 2 seconds. Pulses within normal limits. GI / : Abdomen soft and nontender. SKIN: Skin is warm and dry. Normal skin turgor. --22: Danya Duenas R.N. NURSING PROGRESS NOTES 22:02/11/17. Patient gowned. Reassurance given. Two patient identifiers checked. Checked patient name and birthdate. Call light placed in reach. Side rails up x 1. Bed placed in lowest position. Brakes of bed on. Patient ready for evaluation- chart flagged and ED physician and PA notified. --22: Danya Duenas R.N. 22:19 02/11/2017 Dilaudid (HYDROmorphone HCl PF) IM 2 mg given. Given in the right deltoid. Allergies verified, confirmed 5 rights and sedative warning given to the patient. --22:19 Danya Duenas R.N. 23:45. The patient is calm and resting quietly. RESPIRATORY: No respiratory distress. SKIN: Skin is warm and dry. Skin color within normal limits. --23:50 Ralph Sheppard R.N. DISPOSITION / DISCHARGE Departure time: 23:48. Condition at departure: stable. No learning barriers present. Discharge instructions provided and reviewed with the patient. Reviewed medication(s) side effects, precautions, dosing and course information. Prescription(s) given to the patient. Patient verbalized understanding. Written instructions provided in German. The patient was discharged home and accompanied by family. She left the Emergency Department ambulatory and via private vehicle. Family member driving. FALL RISK ASSESSMENT: Fall risk assessment completed. No fall risk identified. --23:49 Ralph Sheppard R.N. 23:40 02/11/17. BP: 111/65. HR: 78. RR: 17. O2 saturation: 96%. Pain level now: 02/24. --23:49 Ralph Sheppard R.N. Locked/Released at 02/11/2017 23:50 by Ralph Sheppard R.N.
--- NOTE | 2017-02-13 08:25 | ED DISCHARGE INSTRUCTIONS ---
Patient: REJI LU General Instructions [facility] VisitID: [id number] [address] [place] [address] 47y, F Registration Date/Time: 02/11/2017 02/11/2017 21:57 BP: 147/95. HR: 98. RR: 22. O2 saturation: 97%. Temp: 98.1 F. Pain level now: 06/26. Hypertensive. Oxygen saturation normal. Single left rib fracture (10th). Essential hypertension. INSTRUCTIONS Warnings: GENERAL WARNINGS: Return or contact your physician immediately if your condition worsens or changes unexpectedly, if not improving as expected, or if other problems arise. SPECIFICALLY, return if you develop weakness, numbness, tingling, pain or incontinence. worsening pain, fever, or difficulty breathing. Your Current Medications: CONTINUE TAKING THE FOLLOWING MEDICATIONS: Aprazolam 0.5 mg prn*. Atorvastatin 40 mg qhs*. Cyclobenzaprine 10 mg bid*. Furosemide Oral. Gabapentin 500 mg bid*. Glidess FE*. Humalog sliding scale*. Ibuprofen 800 mg BID*. Klor-Con M10 Oral. Lantus 22 units A.M, 24 P.M*. Lantus Subcutaneous. Prescription Medications: Percocet 5 mg/325 mg: take 1-2 tablets orally every 6 hours as needed for pain. Dispense twenty (20). No refill. Substitution is permissible. Phenergan w/ Codeine 10mg / 6.25mg per 5 mL: take 1-2 teaspoons every 6 hours as needed for pain or cough. Dispense sixty (60) mL. No refill. Substitution is permissible. Follow-up: Return to the emergency department as needed. Follow up with your doctor in three days. Reason for referral: recheck today's concerns. Summary of care provided to patient and family via paper. Screening today revealed the patient's blood pressure to be in the normal range. The patient should follow up with a primary care provider for blood pressure management. Understanding of the discharge instructions verbalized by family. ADDITIONAL INFORMATION Rib Fracture You have a fracture (break) of one or more ribs. Rib fractures do not require a cast like other bones. They will heal by themselves in about 4-6 weeks. The first 3-4 weeks will be the most painful because deep breathing, coughing or changing position from sitting to lying down, may cause the broken ends to move slightly. Home Care: Rest. You should not be doing any heavy lifting or strenuous exertion until the pain goes away. Because it hurts to breathe when you have a broken rib, there is risk of getting pneumonia from poor airflow through your lungs. To prevent this: Take four very deep breaths at least four times a day (exhale through pursed lips as if you are blowing up a balloon). If an "incentive spirometer" (breathing exercise device) was given to you, use it at least four times a day, or as directed. Apply an ice pack (ice cubes in a plastic bag, wrapped in a towel) over the injured area for 20 minutes every 1-2 hours the first day. Continue with ice packs 3-4 times a day for the next two days, then as needed for the relief of pain and swelling. You may use acetaminophen (Tylenol) or ibuprofen (Motrin, Advil) to control pain, unless another pain medicine was prescribed. [NOTE: If you have chronic liver or kidney disease or ever had a stomach ulcer or GI bleeding, talk with your doctor before using these medicines.] If your pain is not controlled by the treatment given, contact your doctor. Sometimes a stronger pain medicine may be needed. A nerve block (numbing the nerve between the ribs) can be performed in case of severe pain. Follow Up with your doctor during the next week, or as advised. Rarely, a broken rib will cause complications within the first few days that may not be evident during your initial exam (such as, collapsed lung, bleeding around the lung or into the abdomen, or pneumonia). Therefore, watch for the signs below. [NOTE: If x-rays were taken, they will be reviewed by a radiologist. You will be notified of any new findings that may affect your care.] Get Prompt Medical Attention if any of the following occur: Shortness of breath Increasing chest pain with breathing Dizziness, weakness or fainting New or worsening abdominal pain Fever of 100.4F (38C) or higher, or as directed by your healthcare provider Congested cough High Blood Pressure --Established High Blood Pressure (Hypertension) is a chronic disease. The cause is unknown in most cases. It can usually be controlled with lifestyle changes and/or medicines. Symptoms of high blood pressure may include headache, dizziness, visual changes, chest pain and shortness of breath. Sometimes it causes no symptoms at all. However, even if there are no symptoms, untreated high blood pressure increases the risk of heart attack, also known as acute myocardial infarction, or AMI, and stroke. It is a serious health risk and should not be ignored. A normal blood pressure is 120/80 or less. The first (top) number is the "systolic" pressure. The second (bottom) number is the "diastolic" pressure. Hypertension exists when either the top number is 140 or higher, OR the bottom number is 90 or higher on repeated measurements. Home Care: All patients with high blood pressure should do the following to lower their pressure. If you are on medicines, then these methods may reduce or eliminate your need for medicines in the future. Begin a weight loss program if you are overweight. Reduce your salt intake. Avoid high salt foods (olives, pickles, smoked meats, salted potato chips, etc.). Do not add salt to your food at the table. Use only small amounts of salt when cooking. Begin an exercise program. Discuss with your doctor what type of exercise program would be best for you. It doesn't have to be difficult. Even brisk walking for 20 minutes three times a week is a good form of exercise. Avoid medicines which contain heart stimulants. This includes many cold and sinus decongestant pills and sprays as well as diet pills. Check the warnings about hypertension on the label. Stimulants such as amphetamine or cocaine could be lethal for someone with hypertension. Never take these. Limit your caffeine intake or switch to caffeine-free products. Stop smoking. If you are a long-time smoker, this can be hard. Enroll in a stop-smoking program to improve your chance of success. Learning how to handle stress better is an important part of any program to lower blood pressure. Learn about relaxation methods such as meditation, yoga or biofeedback. If medicines were prescribed, take them exactly as directed. Missing doses may cause your blood pressure get out of control. Consider buying an automatic blood pressure machine (available at most pharmacies). Use this to monitor your blood pressure at home and report the results to your doctor. Follow Up: Regular visits to your own physician for blood pressure checks and medicine adjustment is an important part of your care. Make a follow-up appointment as directed by our staff. Get Prompt Medical Attention if any of the following occur: Chest pain or shortness of breath Severe headache Throbbing or rushing sound in the ears Nosebleed Sudden severe abdominal pain Extreme drowsiness, confusion or fainting Dizziness or vertigo (dizziness with spinning sensation) Weakness of an arm or leg or one side of the face Difficulty with speech or vision Oxycodone Hydrochloride, Acetaminophen Oral tablet What is this medicine? ACETAMINOPHEN; OXYCODONE (a set a MIRIAM nkechi fen; ox i KOE done) is a pain reliever. It is used to treat mild to moderate pain. How should I use this medicine? Take this medicine by mouth with a full glass of water. Follow the directions on the prescription label. Take your medicine at regular intervals. Do not take your medicine more often than directed. Talk to your sand technologist regarding the use of this medicine in children. Special care may be needed. Patients over 65 years old may have a stronger reaction and need a smaller dose. What side effects may I notice from receiving this medicine? Side effects that you should report to your doctor or health childcare administrator as soon as possible: allergic reactions like skin rash, itching or hives, swelling of the face, lips, or tongue breathing difficulties, wheezing confusion light headedness or fainting spells severe stomach pain yellowing of the skin or the whites of the eyes Side effects that usually do not require medical attention (report to your doctor or health childcare administrator if they continue or are bothersome): dizziness drowsiness nausea vomiting What may interact with this medicine? alcohol antihistamines barbiturates like amobarbital, butalbital, butabarbital, methohexital, pentobarbital, phenobarbital, thiopental, and secobarbital benztropine drugs for bladder problems like solifenacin, trospium, oxybutynin, tolterodine, hyoscyamine, and methscopolamine drugs for breathing problems like ipratropium and tiotropium drugs for certain stomach or intestine problems like propantheline, homatropine methylbromide, glycopyrrolate, atropine, belladonna, and dicyclomine general anesthetics like etomidate, ketamine, nitrous oxide, propofol, desflurane, enflurane, halothane, isoflurane, and sevoflurane medicines for depression, anxiety, or psychotic disturbances medicines for sleep muscle relaxants naltrexone narcotic medicines (opiates) for pain phenothiazines like perphenazine, thioridazine, chlorpromazine, mesoridazine, fluphenazine, prochlorperazine, promazine, and trifluoperazine scopolamine tramadol trihexyphenidyl What if I miss a dose? If you miss a dose, take it as soon as you can. If it is almost time for your next dose, take only that dose. Do not take double or extra doses. Where should I keep my medicine? Keep out of the reach of children. This medicine can be abused. Keep your medicine in a safe place to protect it from theft. Do not share this medicine with anyone. Selling or giving away this medicine is dangerous and against the law. Store at room temperature between 20 and 25 degrees C (68 and 77 degrees F). Keep container tightly closed. Protect from light. This medicine may cause accidental overdose and if it is taken by other adults, children, or pets. Flush any unused medicine down the toilet to reduce the chance of harm. Do not use the medicine after the expiration date. What should I tell my health care provider before I take this medicine? They need to know if you have any of these conditions: brain tumor Crohn's disease, inflammatory bowel disease, or ulcerative colitis drink more than 3 alcohol containing drinks per day drug abuse or addiction head injury heart or circulation problems kidney disease or problems going to the bathroom liver disease lung disease, asthma, or breathing problems an unusual or allergic reaction to acetaminophen, oxycodone, other opioid analgesics, other medicines, foods, dyes, or preservatives or trying to get breast-feeding What should I watch for while using this medicine? Tell your doctor or health childcare administrator if your pain does not go away, if it gets worse, or if you have new or a different type of pain. You may develop tolerance to the medicine. Tolerance means that you will need a higher dose of the medication for pain relief. Tolerance is normal and is expected if you take this medicine for a long time. Do not suddenly stop taking your medicine because you may develop a severe reaction. Your body becomes used to the medicine. This does NOT mean you are addicted. Addiction is a behavior related to getting and using a drug for a non-medical reason. If you have pain, you have a medical reason to take pain medicine. Your doctor will tell you how much medicine to take. If your doctor wants you to stop the medicine, the dose will be slowly lowered over time to avoid any side effects. You may get drowsy or dizzy. Do not drive, use machinery, or do anything that needs mental alertness until you know how this medicine affects you. Do not stand or sit up quickly, especially if you are an older patient. This reduces the risk of dizzy or fainting spells. Alcohol may interfere with the effect of this medicine. Avoid alcoholic drinks. There are different types of narcotic medicines (opiates) for pain. If you take more than one type at the same time, you may have more side effects. Give your health care provider a list of all medicines you use. Your doctor will tell you how much medicine to take. Do not take more medicine than directed. Call emergency for help if you have problems breathing. The medicine will cause constipation. Try to have a bowel movement at least every 2 to 3 days. If you do not have a bowel movement for 3 days, call your doctor or health childcare administrator. Do not take Tylenol (acetaminophen) or medicines that have acetaminophen with this medicine. Too much acetaminophen can be very dangerous. Many nonprescription medicines contain acetaminophen. Always read the labels carefully to avoid taking more acetaminophen. You have been given the following additional information: Fracture, Rib Hypertension, Established Oxycodone Hydrochloride, Acetaminophen Oral tablet (Electronically signed by Renato Delgado Dr. 02/13/2017 8:25)
--- NOTE | 2017-02-13 08:25 | ED MAR SUMMARY ---
..... Medication Administration Record [facility] [address] [place] [address] Patient: REJI LU Visit ID: [id number] 47y, F Weight: 74.8 kg Height/Length: 67 in BMI: 25.9 ALLERGIES: morphine, Toradol, Tramadol Given 22:19 02/11/2017 Danya Duenas R.N. Medication Administered: DILAUDID [IM] (HYDROMORPHONE HCL PF), Dose: 2 mg IM. Medication Ordered: Dilaudid IM 2 mg (HIGH ALERT MEDICATION, NOW).
--- NOTE | 2017-02-13 08:25 | ED MAR SUMMARY ---
..... Medication Administration Record [facility] [address] [place] [address] Patient: REJI LU Visit ID: [id number] 47y, F Weight: 74.8 kg Height/Length: 67 in BMI: 25.9 ALLERGIES: morphine, Toradol, Tramadol Given 22:19 02/11/2017 Danya Duenas R.N. Medication Administered: DILAUDID [IM] (HYDROMORPHONE HCL PF), Dose: 2 mg IM. Medication Ordered: Dilaudid IM 2 mg (HIGH ALERT MEDICATION, NOW).
--- NOTE | 2017-02-13 08:25 | ED MED RECONCILIATION SUMMARY ---
Patient: REJI LU Medication Reconciliation Report [facility] VisitID: [id number] [address] [place] [address] 47y, F Registration Date/Time: 02/11/2017 Weight: 74.8 kg Height/Length: 67 in. BMI: 25.9 ALLERGIES: morphine, Toradol, Tramadol The patient's Home Medications are listed below: CONTINUE TAKING THE FOLLOWING MEDICATIONS: Aprazolam 0.5 mg prn Atorvastatin 40 mg qhs Cyclobenzaprine 10 mg bid Furosemide Oral Gabapentin 500 mg bid Glidess FE Humalog sliding scale Ibuprofen 800 mg BID Klor-Con M10 Oral Lantus 22 units A.M, 24 P.M Lantus Subcutaneous The source(s) of the original Home Medication information: patient The following Medications were given to the patient in the Emergency Department: Dilaudid [IM] IM 2 mg, administered: 02/11/2017 10:19:00 PM The following Medications were prescribed to the patient: Percocet 5 mg/325 mg: take 1-2 tablets orally every 6 hours as needed for pain. Dispense twenty (20). No refill. Substitution is permissible. -- Renato Delgado Dr. Phenergan w/ Codeine 10mg / 6.25mg per 5 mL: take 1-2 teaspoons every 6 hours as needed for pain or cough. Dispense sixty (60) mL. No refill. Substitution is permissible. -- Renato Delgado Dr.
--- NOTE | 2017-02-13 08:25 | ED MED RECONCILIATION SUMMARY ---
Patient: REJI LU Medication Reconciliation Report [facility] VisitID: [id number] [address] [place] [address] 47y, F Registration Date/Time: 02/11/2017 Weight: 74.8 kg Height/Length: 67 in. BMI: 25.9 ALLERGIES: morphine, Toradol, Tramadol The patient's Home Medications are listed below: CONTINUE TAKING THE FOLLOWING MEDICATIONS: Aprazolam 0.5 mg prn Atorvastatin 40 mg qhs Cyclobenzaprine 10 mg bid Furosemide Oral Gabapentin 500 mg bid Glidess FE Humalog sliding scale Ibuprofen 800 mg BID Klor-Con M10 Oral Lantus 22 units A.M, 24 P.M Lantus Subcutaneous The source(s) of the original Home Medication information: patient The following Medications were given to the patient in the Emergency Department: Dilaudid [IM] IM 2 mg, administered: 02/11/2017 10:19:00 PM The following Medications were prescribed to the patient: Percocet 5 mg/325 mg: take 1-2 tablets orally every 6 hours as needed for pain. Dispense twenty (20). No refill. Substitution is permissible. -- Renato Delgado Dr. Phenergan w/ Codeine 10mg / 6.25mg per 5 mL: take 1-2 teaspoons every 6 hours as needed for pain or cough. Dispense sixty (60) mL. No refill. Substitution is permissible. -- Renato Dlegado Dr.
== END 2017-02-11 23:48 | disposition home or self-care (01) ==
LOC: ED SRH 21:50
DX: S22.32XA Fracture of one rib, left side, initial encounter for closed fracture (principal); X58.XXXA Exposure to other specified factors, initial encounter; Y93.9 Activity, unspecified; Y92.019 Unspecified place in single-family (private) house as the place of occurrence of the external cause; Y99.9 Unspecified external cause status; I10 Essential (primary) hypertension; E11.9 Type 2 diabetes mellitus without complications; K21.9 Gastro-esophageal reflux disease without esophagitis; E78.5 Hyperlipidemia, unspecified; J44.9 Chronic obstructive pulmonary disease, unspecified

== ENCOUNTER 2017-03-19 09:02 | Outpatient (CLI) | payer OTHER ==
--- NOTE | 2017-03-19 09:38 | DIAGNOSTIC IMAGING REPORT ---
PROCEDURE: XR RIBS UNILAT W/PA CHEST-LT INDICATION: CLOSED FRACTURE OF ONE RIB L SIDE, INITIAL ENCOUNTER TECHNIQUE: Two views of the left ribs with single PA view chest. COMPARISON: Left rib x-rays 02/11/2017. FINDINGS: LEFT RIBS: No change in the minimally displaced left lateral tenth rib fracture. CHEST: Lungs are clear. Heart size, mediastinum and pulmonary vessels are normal. IMPRESSION: 1. Stable minimally displaced left lateral tenth rib fracture
== END 2017-03-19 23:00 ==
LOC: XR SRH 09:02
DX: S22.32XA Fracture of one rib, left side, initial encounter for closed fracture (principal)